=== PATIENT | male | born 1980 | race African-American/Black ===

== ENCOUNTER 2020-09-26 11:13 | Inpatient (IN) ==
[2020-09-26] MEDS ORDERED: SODIUM CHLORIDE 0.9% 1,000 ML IV STA (12:29)
[2020-09-26 12:44] LABS: Basophils % 0.2 % (0.0-0.8); Eosinophils % 0.5 % (0.00-10.9); Hematocrit 43.6 VOL% (42.0-52.0); Hemoglobin 13.9 GM/DL (14.0-18.0); Immature Granulocytes % 0.4 %; Immature Granulocytes Absolute 0.03 #; Lymphocytes # 1.9 10*3/uL (1.4-4.0); Mean Corpuscular HGB Conc 31.9 GM/DL (32-36); Mean Corpuscular Volume 84.7 FL (87-102); Mean Platelet Volume 10.3 FL (9.6-12.0); Monocytes % 13.1 % (1.7-12.7); Neutrophils % 63.8 % (38.7-73.9); Platelet Count 242 T/CUMM (130-400); Red Blood Count 5.15 MC/CUMM (3.8-5.5); Red Cell Distribution Width 12.9 % (9.3-17.3); White Blood Count 8.4 T/CUMM (4-12)
[2020-09-26 12:59] LABS: Albumin 3.6 G/DL (3.4-5.0); Bilirubin,Total 0.4 MG/DL (0.20-1.00); Calcium 9.1 MG/DL (8.5-10.1); Osmolality,Calculated 292.1 MOS/KG (273-304); Potassium 5.1 MMOL/L (3.5-5.1); Total Protein 8.3 G/DL (6.4-8.2)
[2020-09-26] MEDS ORDERED: ALUMINUM/MAGNES/SIMETH MAX STR 30 ML UDCUP PO PRN (14:21)
[2020-09-26] MEDS ORDERED: GLUCAGON 1 MG VIAL IM PRN (14:21)
[2020-09-26] MEDS ORDERED: DEXTROSE 50% 25 GM/50 ML VIAL IV PRN (14:21)
[2020-09-26] MEDS ORDERED: ONDANSETRON 4 MG/2 ML VIAL IV PRN (14:21)
[2020-09-26] MEDS ORDERED: ONDANSETRON 4 MG/2 ML VIAL IV STA (14:41)
[2020-09-26 15:05] LABS: Thyroid Stimulating Hormone 0.473 uIU/ml (0.358-3.74); Uric Acid 10.3 MG/DL (3.5-7.2)
[2020-09-26] MEDS ORDERED: hydrALAZINE 20 MG/1 ML VIAL IV PRN (15:36)
[2020-09-26] MEDS: HEPARIN 5,000 UNIT/1 ML VIAL SUBCUT SCH (15:50)
[2020-09-26] MEDS: SODIUM CHLORIDE 0.9% 1,000 ML IV SCH ×2 (15:50→23:53)
[2020-09-26] MEDS: INSULIN LISPRO 100 UNIT/ML SUBCUT SCH ×2 (17:40→21:37)
[2020-09-27] MEDS: HEPARIN 5,000 UNIT/1 ML VIAL SUBCUT SCH ×2 (03:28→22:00)
[2020-09-27 04:19] LABS: Bilirubin,Urine Negative (Negative); Blood, Urine Small mg/dL (Negative); Glucose,Urine (UA) 150 mg/dL (Negative); Ketones,Urine Negative (Negative); Mucus,Urine Occasional /LPF (Occasional); Nitrite,Urine Negative (Negative); Protein,Urine 100 MG/DL; RBC,Urine 6 /HPF (0-4); Squamous Epithelial Cell,Urine Occasional /HPF (0-10); Urine Appearance Slightly Hazy (Clear); Urine Color Yellow (Yellow); Urine Specific Gravity 1.011 (1.001-1.035); Urine Urobilinogen < 2.0 EU/DL (0.2-1.0)
[2020-09-27 04:47] LABS: Protein/Creatinine Ratio,Urine 3.7 RATIO
[2020-09-27 07:07] LABS: Calcium 7.7 MG/DL (8.5-10.1); Osmolality,Calculated 296.8 MOS/KG (273-304); Potassium 5.1 MMOL/L (3.5-5.1)
[2020-09-27] MEDS: SODIUM CHLORIDE 0.9% 1,000 ML IV SCH ×3 (07:29→22:51)
[2020-09-27] MEDS: INSULIN LISPRO 100 UNIT/ML SUBCUT SCH ×4 (08:37→22:00)
[2020-09-27] MEDS: PANTOPRAZOLE 40 MG TABLET PO SCH (09:17)
[2020-09-28 05:32] LABS: Basophils % 0.1 % (0.0-0.8); Eosinophils % 0.1 % (0.00-10.9); Hematocrit 39.2 VOL% (42.0-52.0); Hemoglobin 12.6 GM/DL (14.0-18.0); Immature Granulocytes % 0.4 %; Immature Granulocytes Absolute 0.03 #; Lymphocytes # 1.3 10*3/uL (1.4-4.0); Lymphocytes % 18.4 % (21.2-54.2); Mean Corpuscular HGB Conc 32.1 GM/DL (32-36); Mean Corpuscular Volume 84.7 FL (87-102); Mean Platelet Volume 10.5 FL (9.6-12.0); Platelet Count 191 T/CUMM (130-400); Red Blood Count 4.63 MC/CUMM (3.8-5.5); Red Cell Distribution Width 12.9 % (9.3-17.3); White Blood Count 6.8 T/CUMM (4-12)
[2020-09-28 06:02] LABS: Calcium 7.9 MG/DL (8.5-10.1); Osmolality,Calculated 302.7 MOS/KG (273-304); Potassium 5.2 MMOL/L (3.5-5.1)
[2020-09-28] MEDS: SODIUM CHLORIDE 0.9% 1,000 ML IV SCH ×2 (07:40→16:43)
[2020-09-28] MEDS: INSULIN LISPRO 100 UNIT/ML SUBCUT SCH ×4 (08:12→20:56)
[2020-09-28] MEDS: HEPARIN 5,000 UNIT/1 ML VIAL SUBCUT SCH ×2 (08:13→20:56)
[2020-09-28] MEDS: PANTOPRAZOLE 40 MG TABLET PO SCH (08:13)
[2020-09-28] MEDS ORDERED: MELATONIN 3 MG TABLET PO SCH (21:00)
[2020-09-29] MEDS: SODIUM CHLORIDE 0.9% 1,000 ML IV SCH ×2 (01:30→15:05)
[2020-09-29 07:15] LABS: Basophils % 0.5 % (0.0-0.8); Eosinophils # 0.1 10*3/uL (0.0-0.87); Eosinophils % 0.9 % (0.00-10.9); Hematocrit 37.6 VOL% (42.0-52.0); Hemoglobin 12.6 GM/DL (14.0-18.0); Immature Granulocytes % 0.3 %; Immature Granulocytes Absolute 0.02 #; Lymphocytes # 1.8 10*3/uL (1.4-4.0); Mean Corpuscular HGB Conc 33.5 GM/DL (32-36); Mean Corpuscular Volume 83.2 FL (87-102); Monocytes % 14.2 % (1.7-12.7); Neutrophils % 56.1 % (38.7-73.9); Platelet Count 194 T/CUMM (130-400); Red Blood Count 4.52 MC/CUMM (3.8-5.5); White Blood Count 6.5 T/CUMM (4-12)
[2020-09-29 07:46] LABS: Calcium 8.2 MG/DL (8.5-10.1); Osmolality,Calculated 301.3 MOS/KG (273-304); Potassium 4.7 MMOL/L (3.5-5.1)
[2020-09-29] MEDS: INSULIN LISPRO 100 UNIT/ML SUBCUT SCH ×4 (08:09→20:14)
[2020-09-29] MEDS: PANTOPRAZOLE 40 MG TABLET PO SCH (08:09)
[2020-09-29] MEDS: HEPARIN 5,000 UNIT/1 ML VIAL SUBCUT SCH ×2 (08:09→20:14)
[2020-09-29] MEDS: SODIUM BICARB INJ 50 MEQ in SODIUM CHLORIDE 0.45% 1,000 ML IV SCH ×2 (09:51→21:29)
[2020-09-29 11:42] LABS: Osmolality, Urine 291 mOsm/kg (150 - 1150)
[2020-09-29] MEDS: METOPROLOL TARTRATE 100 MG TABLET PO SCH ×2 (14:27→20:13)
[2020-09-29] MEDS: amLODIPine 10 MG TABLET PO SCH (14:28)
[2020-09-29] MEDS ORDERED: ZALEPLON 5 MG CAPSULE PO PRN (19:37)
[2020-09-30 05:45] LABS: Basophils % 0.3 % (0.0-0.8); Eosinophils # 0.1 10*3/uL (0.0-0.87); Eosinophils % 1.5 % (0.00-10.9); Hematocrit 39.9 VOL% (42.0-52.0); Hemoglobin 13.2 GM/DL (14.0-18.0); Immature Granulocytes % 0.3 %; Immature Granulocytes Absolute 0.02 #; Lymphocytes % 28.9 % (21.2-54.2); Mean Corpuscular HGB Conc 33.1 GM/DL (32-36); Mean Corpuscular Volume 83.3 FL (87-102); Mean Platelet Volume 10.5 FL (9.6-12.0); Monocytes % 12.6 % (1.7-12.7); Neutrophils % 56.4 % (38.7-73.9); Platelet Count 214 T/CUMM (130-400); Red Blood Count 4.79 MC/CUMM (3.8-5.5); Red Cell Distribution Width 13.1 % (9.3-17.3); White Blood Count 6.9 T/CUMM (4-12)
[2020-09-30 06:11] LABS: Osmolality,Calculated 294.5 MOS/KG (273-304); Potassium 4.4 MMOL/L (3.5-5.1)
[2020-09-30 08:02] VITALS: BP 151/97
[2020-09-30] MEDS: HEPARIN 5,000 UNIT/1 ML VIAL SUBCUT SCH (08:49)
[2020-09-30] MEDS: INSULIN LISPRO 100 UNIT/ML SUBCUT SCH (08:49)
[2020-09-30] MEDS: METOPROLOL TARTRATE 100 MG TABLET PO SCH (08:50)
[2020-09-30] MEDS: SODIUM BICARB INJ 50 MEQ in SODIUM CHLORIDE 0.45% 1,000 ML IV SCH (08:50)
[2020-09-30] MEDS: amLODIPine 10 MG TABLET PO SCH (08:50)
[2020-09-30] MEDS: PANTOPRAZOLE 40 MG TABLET PO SCH (08:50)
== END 2020-09-30 11:12 | disposition home or self-care (01) | DRG 684 ==
LOC: N.ED 11:13 → N.EDINP 14:20 → SUATTDRO 14:20 → N.5E 16:42
PROVIDERS: ADMIT Internal Medicine; ATTEND Hospitalist